=== PATIENT | female | born 1935 | race Caucasian/White ===

== ENCOUNTER 2018-06-09 22:21 | Inpatient (IN) | payer MEDICARE, MEDICAID ==
[~2018-06-09] VITALS: Ht 154.9 cm; Wt 59.4 kg
[2018-06-09 21:40] VITALS: BP 114/40
[2018-06-10] VITALS: BP 110/45
[2018-06-10] MEDS ORDERED: HYDROCODONE/ACETAMINOPHEN 5/325MG TABLET PO PRN (01:45)
[2018-06-10] MEDS ORDERED: SULF1TAB48 MT (02:21)
[2018-06-10] MEDS ORDERED: FAMO20TA8 MT (02:50)
[2018-06-10] MEDS ORDERED: TRAM50TA3 PO (02:50)
[2018-06-10] MEDS ORDERED: CLOP75TA33 MT (02:50)
[2018-06-10] MEDS ORDERED: LEVO175T7 MT (02:50)
[2018-06-10] MEDS ORDERED: MIRT15TA7 MT (02:50)
[2018-06-10] MEDS ORDERED: DONE5TAB33 MT (02:50)
[2018-06-10] MEDS ORDERED: CHOL200010 MT (02:50)
[2018-06-10] MEDS ORDERED: SENN-170 PO (02:50)
[2018-06-10] MEDS ORDERED: ASCO500T20 MT (02:50)
[2018-06-10] MEDS ORDERED: MULT-1116 MT (02:50)
[2018-06-10] MEDS ORDERED: ACET-2178 MT (02:50)
[2018-06-10] MEDS ORDERED: SIMV40TA5 MT (02:50)
[2018-06-10] MEDS ORDERED: ATEN50TA MT (02:50)
[2018-06-10] MEDS ORDERED: MEMA10TA19 MT (02:50)
[2018-06-10] MEDS ORDERED: INSU100I24 SQ ×2 (03:57→04:00)
[2018-06-10] MEDS ORDERED: MEGE20TA2 MT ×2 (03:57→04:00)
[2018-06-10 04:00] VITALS: BP 101/36
[2018-06-10] MEDS ORDERED: DEXT 5%/0.9% NACL 1,000 ML IV SCH (04:00)
[2018-06-10 04:08] VITALS: BP 112/40
[2018-06-10] MEDS ORDERED: DEXTROSE 50% WATER 50ML SYRINGE IV PRN (07:00)
[2018-06-10 07:46] LABS: HEMATOCRIT 36.3 % (36.0-48.0); HEMOGLOBIN 11.7 g/dL (12.0-16.0); MEAN CORPUSCULAR HEMOGLOBIN 27.4 pg (28.0-32.0); MEAN CORPUSCULAR VOLUME 84.9 fL (81.0-99.0); PLATELET 299 x1000/uL (130-400); RED BLOOD CELL COUNT 4.28 mill/uL (4.2-5.4); RED CELL DISTRIBUTION WIDTH 14.7 % (11.6-14.6)
[2018-06-10] MEDS: BLOOD SUGAR DIAGNOSTIC STRIP TEST SCH ×4 (08:08→21:00)
[2018-06-10 08:13] LABS: INR 1.2; PROTHROMBIN TIME 12.6 sec (9.6-11.0)
[2018-06-10] MEDS: INSULIN LISPRO 100 UNITS/ML SUBCUT SCH ×4 (08:36→22:21)
[2018-06-10] MEDS ORDERED: SODIUM CHLORIDE 0.9% 1,000 ML IV SCH (08:45)
[2018-06-10] MEDS: INSULIN GLARGINE UD 100 UNITS/ML SYR SUBCUT SCH ×2 (10:00→22:22)
[2018-06-10 12:00] VITALS: BP 118/95
[2018-06-10] MEDS ORDERED: SODIUM POLYSTYRENE SULFONATE 15 G/60 ML BOT PO NR (14:00)
[2018-06-10 16:00] VITALS: BP 101/65
[2018-06-10] MEDS: ENOXAPARIN 30MG/0.3ML SYR SUBCUT SCH (17:10)
[2018-06-10 20:00] VITALS: BP_SYST 141; BP_SYST 94; BP_DIAS 78; BP_DIAS 90
[2018-06-11] VITALS: BP 141/90
[2018-06-11 04:00] VITALS: BP 150/65
[2018-06-11] MEDS: BLOOD SUGAR DIAGNOSTIC STRIP TEST SCH ×4 (06:26→21:00)
[2018-06-11 06:28] LABS: BASOPHILS % 0.7 % (0.0-2.0); EOSINOPHILS % 1.9 % (0.0-5.0); HEMATOCRIT. 37.9 % (36.0-48.0); HEMOGLOBIN. 12.3 g/dL (12.0-16.0); MEAN CORPUSCULAR HEMOGLOBIN 27.7 pg (28.0-32.0); MEAN CORPUSCULAR VOLUME 85.1 fL (81.0-99.0); MEAN PLATELET VOLUME 7.9 fl (7.4-10.4); MONOCYTES % 7.6 % (2.0-8.0); NEUTROPHILS % 66.8 % (40.0-76.0); PLATELET 293 x1000/uL (130-400); RED BLOOD CELL COUNT 4.46 mill/uL (4.2-5.4); RED CELL DISTRIBUTION WIDTH 14.8 % (11.6-14.6)
[2018-06-11 08:00] VITALS: BP 110/62
[2018-06-11] MEDS: INSULIN LISPRO 100 UNITS/ML SUBCUT SCH ×4 (08:42→21:00)
[2018-06-11] MEDS: INSULIN GLARGINE UD 100 UNITS/ML SYR SUBCUT SCH ×2 (11:01→21:35)
[2018-06-11 12:00] VITALS: BP 96/69
[2018-06-11] MEDS: ENOXAPARIN 30MG/0.3ML SYR SUBCUT SCH (12:53)
[2018-06-11 16:05] VITALS: BP 108/55
[2018-06-11 20:00] VITALS: BP 92/68
[2018-06-12] VITALS: BP 133/70
[2018-06-12 04:00] VITALS: BP 123/50
[2018-06-12 06:10] LABS: BASOPHILS % 0.4 % (0.0-2.0); EOSINOPHILS % 1.5 % (0.0-5.0); HEMATOCRIT. 36.4 % (36.0-48.0); HEMOGLOBIN. 11.6 g/dL (12.0-16.0); LYMPHOCYTES % 11.3 % (20.0-50.0); MEAN CORPUSCULAR HEMOGLOBIN 27.3 pg (28.0-32.0); MEAN CORPUSCULAR VOLUME 85.8 fL (81.0-99.0); MEAN PLATELET VOLUME 8.1 fl (7.4-10.4); MONOCYTES % 4.6 % (2.0-8.0); NEUTROPHILS % 82.2 % (40.0-76.0); PLATELET 284 x1000/uL (130-400); RED BLOOD CELL COUNT 4.25 mill/uL (4.2-5.4); RED CELL DISTRIBUTION WIDTH 15.1 % (11.6-14.6)
[2018-06-12] MEDS: BLOOD SUGAR DIAGNOSTIC STRIP TEST SCH ×4 (06:53→21:00)
[2018-06-12 07:02] LABS: PHOSPHORUS 5.1 mg/dL (2.5-4.9)
[2018-06-12] MEDS: INSULIN LISPRO 100 UNITS/ML SUBCUT SCH ×4 (07:03→21:09)
[2018-06-12 08:00] VITALS: BP 122/50
[2018-06-12] MEDS ORDERED: HALOPERIDOL LACTATE 5MG/ML VIAL IM PRN (08:15)
[2018-06-12] MEDS: QUETIAPINE FUMARATE 25MG TABLET PO SCH ×2 (10:05→20:36)
[2018-06-12] MEDS: POTASSIUM CHLORIDE 20MEQ TABLET SR PO SCH (10:05)
[2018-06-12] MEDS: INSULIN GLARGINE UD 100 UNITS/ML SYR SUBCUT SCH ×2 (10:13→21:10)
[2018-06-12 12:00] VITALS: BP 115/49
[2018-06-12] MEDS: ENOXAPARIN 30MG/0.3ML SYR SUBCUT SCH (13:49)
[2018-06-12 16:00] VITALS: BP 104/49
[2018-06-12 20:00] VITALS: BP 109/46
[2018-06-13] VITALS: BP 117/96
[2018-06-13 04:00] VITALS: BP 132/92
[2018-06-13] MEDS: INSULIN LISPRO 100 UNITS/ML SUBCUT SCH ×4 (07:50→21:00)
[2018-06-13] MEDS: BLOOD SUGAR DIAGNOSTIC STRIP TEST SCH ×4 (07:52→21:00)
[2018-06-13 08:00] VITALS: BP 97/45
[2018-06-13] MEDS: QUETIAPINE FUMARATE 25MG TABLET PO SCH ×2 (09:28→22:21)
[2018-06-13] MEDS: POTASSIUM CHLORIDE 20MEQ TABLET SR PO SCH (09:28)
[2018-06-13] MEDS ORDERED: LEVOFLOXACIN 500MG TABLET PO SCH (11:00)
[2018-06-13 12:00] VITALS: BP 73/32
[2018-06-13] MEDS ORDERED: HALOPERIDOL 1MG TABLET PO PRN (12:00)
[2018-06-13] MEDS: ENOXAPARIN 30MG/0.3ML SYR SUBCUT SCH (14:32)
[2018-06-13 16:00] VITALS: BP 99/56
[2018-06-13] MEDS: PANTOPRAZOLE SODIUM 40 MG/VIAL IV SCH (17:21)
[2018-06-13] MEDS ORDERED: LEVOFLOXACIN 500MG PREMIX 100 ML IV SCH (18:00)
[2018-06-13 20:00] VITALS: BP 117/59
[2018-06-14] VITALS: BP 121/69
[2018-06-14 04:00] VITALS: BP 121/52
[2018-06-14] MEDS: BLOOD SUGAR DIAGNOSTIC STRIP TEST SCH ×4 (06:42→21:00)
[2018-06-14] MEDS: INSULIN LISPRO 100 UNITS/ML SUBCUT SCH ×4 (06:43→21:00)
[2018-06-14 08:00] VITALS: BP 144/54
[2018-06-14] MEDS ORDERED: HALOPERIDOL LACTATE 5MG/ML VIAL IM SCH (08:00)
[2018-06-14] MEDS: PANTOPRAZOLE SODIUM 40 MG/VIAL IV SCH (08:18)
[2018-06-14] MEDS: QUETIAPINE FUMARATE 25MG TABLET PO SCH ×2 (08:19→22:22)
[2018-06-14] MEDS: POTASSIUM CHLORIDE 20MEQ TABLET SR PO SCH (08:19)
[2018-06-14] MEDS ORDERED: MIDAZOLAM HCL 5 MG/5 ML VIAL ONE (10:13)
[2018-06-14] MEDS ORDERED: FENTANYL CITRATE/PF 50MCG/ML 2ML VIAL ONE (10:13)
[2018-06-14] MEDS ORDERED: MIDAZOLAM HCL 5 MG/5 ML VIAL IV ONE (10:38)
[2018-06-14] MEDS ORDERED: LIDOCAINE HCL 1% 20ML VIAL (Pyxis) INJ ONE (10:41)
[2018-06-14] MEDS: ENOXAPARIN 30MG/0.3ML SYR SUBCUT SCH (11:55)
[2018-06-14 12:00] VITALS: BP 74/50
[2018-06-14] MEDS ORDERED: BACTERIOSTATIC SODIUM CHLORIDE 0.9% 30ML VIAL IJ ONE (13:22)
[2018-06-14] MEDS: SODIUM CHLORIDE 0.9% 1,000 ML IV SCH ×2 (13:47→22:22)
[2018-06-14 16:00] VITALS: BP 143/80
[2018-06-14 20:00] VITALS: BP 117/59
[2018-06-15] VITALS: BP 142/43
[2018-06-15 04:00] VITALS: BP 141/52
[2018-06-15] MEDS: INSULIN LISPRO 100 UNITS/ML SUBCUT SCH ×3 (06:22→18:17)
[2018-06-15] MEDS: BLOOD SUGAR DIAGNOSTIC STRIP TEST SCH ×3 (06:22→18:17)
[2018-06-15] MEDS: SODIUM CHLORIDE 0.9% 1,000 ML IV SCH (06:22)
[2018-06-15 08:00] VITALS: BP 100/50
[2018-06-15] MEDS: PANTOPRAZOLE SODIUM 40 MG/VIAL IV SCH (09:29)
[2018-06-15] MEDS: QUETIAPINE FUMARATE 25MG TABLET PO SCH (09:29)
[2018-06-15] MEDS: POTASSIUM CHLORIDE 20MEQ TABLET SR PO SCH (09:35)
[2018-06-15 12:00] VITALS: BP 113/91
[2018-06-15] MEDS: ENOXAPARIN 30MG/0.3ML SYR SUBCUT SCH (13:16)
[2018-06-15 16:00] VITALS: BP 123/52
[2018-06-15 16:45] VITALS: BP 113/91
[2018-06-15] MEDS ORDERED: LEVOFLOXACIN 250MG PREMIX 50 ML IV SCH (18:00)
== END 2018-06-15 19:30 | DRG 871 ==
LOC: 6EST 22:21
PROVIDERS: ADMIT Internal Medicine Nephrology; ATTEND Internal Medicine Nephrology
PROC: 0DH63UZ Insertion of Feeding Device into Stomach, Percutaneous Approach (ICD-10-PCS; principal; 2018-06-14)
PROC: 02HV33Z Insertion of Infusion Device into Superior Vena Cava, Percutaneous Approach (ICD-10-PCS; 2018-06-14)
PROC: B518ZZA Fluoroscopy of Superior Vena Cava, Guidance (ICD-10-PCS; 2018-06-14)
PROC: B548ZZA Ultrasonography of Superior Vena Cava, Guidance (ICD-10-PCS; 2018-06-14)
DX: A41.9 Sepsis, unspecified organism (principal); E43 Unspecified severe protein-calorie malnutrition; N39.0 Urinary tract infection, site not specified; E87.1 Hypo-osmolality and hyponatremia; G93.40 Encephalopathy, unspecified; N17.9 Acute kidney failure, unspecified; E87.5 Hyperkalemia; F03.90 Unspecified dementia, unspecified severity, without behavioral disturbance, psychotic disturbance, mood disturbance, and anxiety; F32.9 Major depressive disorder, single episode, unspecified; Z86.73 Personal history of transient ischemic attack (TIA), and cerebral infarction without residual deficits; E03.9 Hypothyroidism, unspecified; I10 Essential (primary) hypertension; K29.70 Gastritis, unspecified, without bleeding; R62.7 Adult failure to thrive; M20.42 Other hammer toe(s) (acquired), left foot; M20.41 Other hammer toe(s) (acquired), right foot; E11.9 Type 2 diabetes mellitus without complications; L89.890 Pressure ulcer of other site, unstageable; R74.0 Nonspecific elevation of levels of transaminase and lactic acid dehydrogenase [LDH]; E88.09 Other disorders of plasma-protein metabolism, not elsewhere classified; L89.620 Pressure ulcer of left heel, unstageable; Z74.01 Bed confinement status; Z88.0 Allergy status to penicillin; Z79.4 Long term (current) use of insulin; Z79.899 Other long term (current) drug therapy; Z68.24 Body mass index [BMI] 24.0-24.9, adult
CPT/HCPCS: 36415; 36569; 36573; 80048; 80076; 82962; 83735; 84100; 85027; 97162; A6261; C1725; C9113; J1630; J1650; J1815; J1956; J2250; J3010; J3490; J7030; J7040